=== PATIENT | female | born 1960 | race Caucasian/White ===

== ENCOUNTER → 2016-09-18 | Outpatient (CLI) | payer BC ==
[~2016-09-18] MED LIST: ALBU8.5H2 IH; ALPR0.2550 PO; CARV3.122 PO; CRESTOR40 MG PO; EXEN10PE4 SQ; FERR-57 PO; FLUO60CR TOP; LEVO500T78 PO; LIOT5TAB6 PO; LISI40TA PO; LVT.15T PO; MAGN400T6 PO; METF-380 PO; OMEP20CA12 PO; TRET15GE2 TP; VENL150C53 PO
== END ==
LOC: CARD 12:59
PROVIDERS: ATTEND Internal Medicine Cardiovascular Disease
DX: E11.9 Type 2 diabetes mellitus without complications (principal); R00.2 Palpitations; G47.33 Obstructive sleep apnea (adult) (pediatric); I10 Essential (primary) hypertension
CPT/HCPCS: 93306

== ENCOUNTER 2016-10-27 07:05 | Day surgery (SDC) | payer BC ==
[~2016-10-27] VITALS: Ht 180.3 cm; Wt 103.9 kg
[2016-10-27] VITALS (8 sets, daily range): BP systolic 110–146; BP diastolic 67–82
[~2016-10-27 07:05] MED LIST changes: +HEParin (CATH LAB) 2,000 ML IV ONE; +NS IV 1000 ML 1,000 ML ONE
[2016-10-27] MEDS ORDERED: NS IV 1000 ML 1,000 ML IV SCH ×2 (07:30→09:02)
[2016-10-27 07:34] LABS: MEAN PLATELET VOLUME 10.1 FL (7.4-10.4); RED BLOOD COUNT 5.14 10^6/uL (4.35-5.85); WHITE BLOOD COUNT 9.4 10^3/uL (4.3-11.0)
[2016-10-27] MEDS ORDERED: DAPA5TAB PO (07:46)
[2016-10-27] MEDS ORDERED: EXEN2VIA SQ (07:46)
[2016-10-27] MEDS ORDERED: LEVO112T55 PO (07:46)
[2016-10-27] MEDS ORDERED: OMEP20CA12 PO (07:46)
[2016-10-27] MEDS ORDERED: COLE625T9 PO ×2 (07:46)
[2016-10-27] MEDS ORDERED: METF1000 PO (07:46)
[2016-10-27] MEDS ORDERED: CARV25TA PO (07:46)
[2016-10-27] MEDS ORDERED: FENO134C PO (07:46)
[2016-10-27 07:47] LABS: INR 0.9 (0.8-1.4); PROTHROMBIN TIME PATIENT 12.1 SEC (12.2-14.7)
[2016-10-27] MEDS ORDERED: fentaNYL INJECTION 100 MCG/2 ML AMP ONE (08:01)
[2016-10-27] MEDS ORDERED: diphenhydrAMINE 50 MG/ML INJ (BENADRYL) ONE (08:01)
[2016-10-27] MEDS ORDERED: MIDAZOLAM 5 MG/5 ML (VERSED) VIAL ONE (08:01)
[2016-10-27 08:03] LABS: ALANINE AMINOTRANSFERASE 30 U/L (0-55); ALBUMIN 4.4 GM/DL (3.2-4.5); ANION GAP 9 MMOL/L (5-14); ASPARTATE AMINO TRANSFERASE 17 U/L (5-34); BILIRUBIN,TOTAL 0.2 MG/DL (0.1-1.0); BLOOD UREA NITROGEN 15 MG/DL (7-18); BUN/CREATININE RATIO 20; CALCIUM 10.2 MG/DL (8.5-10.1); CARBON DIOXIDE 23 MMOL/L (21-32); CHLORIDE 107 MMOL/L (98-107); CHOLESTEROL 194 MG/DL (< 200); CREATININE SERUM 0.76 MG/DL (0.60-1.30); DIRECT LDL 112 MG/DL (1-129); GFR ESTIMATED > 60; GLUCOSE 145 MG/DL (70-105); POTASSIUM 4.2 MMOL/L (3.6-5.0); SODIUM 139 MMOL/L (135-145); TOTAL PROTEIN 7.1 GM/DL (6.4-8.2); TRIGLYCERIDES 221 MG/DL (<150); VLDL CHOLESTEROL 44 MG/DL (5-40)
--- NOTE | 2016-10-27 09:02 | Cardiac Procedure Note-CS/ASA ---
Pre-Procedure Note Pre-Op Procedure Note H&P Reviewed The H&P was reviewed, patient examined and no changes noted. Date H&P Reviewed: Oct 27, 2016 Time H&P Reviewed: 08:35 Conscious Sedation Pre-Proced Time Reviewed: 08:35 ASA Class: 3 Airway Mallampati Classification: ([place] appropriate class) I. II. III, IV Lungs Heart ASA score ASA 1: a normal healthy patient ASA 2: a patient with a mild systemic disease (mid diabetes, controlled hypertension, obesity ASA 3: a patient with a severe systemic disease that limits activity (angina , COPD, prior Myocardial infarction) ASA 4: a patient with an incapacitating disease that is a constant threat to life (CHF, renal failure) ASA 5: a moribund patient not expected to survive 24 hrs. (ruptured aneurysm) ASA 6: a declared brain patient whose organs are being harvested. For emergent operations, add the letter E after the classification Grade 2 Sedation Plan: Analgesia, Amnesia, Plan communicated to team members, Discussed options with patient/fam, Discussed risks with patient/fam Note The patient is an appropriate candidate to undergo the planned procedure, sedation, and anesthesia. The patient immediately re-assessed prior to indication. ALBERT CANO MD FACP FAC CCDS Oct 27, 2016 09:02
[2016-10-27] MEDS ORDERED: ASPI-999 PO (09:05)
--- NOTE | 2016-10-27 09:06 | Discharge Inst-Post CATH ---
Discharge Inst-CATH Post Cardiac Cath D/C Inst Follow Up/Plan HOLD METFORMIN UNTIL THE EVENING OF 10/29/16 F/u with Dr Street in 2-3 weeks CARDIAC CATH DISCHARGE INSTRUCTIONS *Hold Metformin for 48 hours post heart cath. ACTIVITY * Go Home directly and rest. * Limit activity of the leg (or wrist if it was used) for 7 days including aerobics, swimming, jogging, bicycling, etc. * Restrict stair-climbing for 7 days if possible, if not, climb up with your non -cath leg, then bring together on the same step. * Avoid lifting, pushing, pulling or excessive movement of the affected extremity for 7 days. * Customary sexual activity may be resumed after 2 days-use caution not to use a position that strains or causes pain to the affected extremity. * No driving for 24 hours. * NO SMOKING. * Avoid straining for bowel movements for 7 days. * Gentle walking on level ground is allowed. * Returning to work will depend on the type of procedure and the results. Your doctor will discuss this with you. CALL YOUR DOCTOR FOR ANY OF THE FOLLOWING: *If bleeding from the puncture site occurs- Apply gentle pressure to site with clean cloth and call your doctor or EMS. * If a knot or lump forms under the skin, increases in size, or causes pain. * If bruising appears to be worsening or moving further down your leg instead of disappearing. * Temperature above 101 F. CARE OF YOUR GROIN INCISION; * Bruising or purple discoloration of the skin near the puncture site is common. * You may shower only, no bathtub bathing for 5 days. Be careful to avoid slipping as your leg may feel stiff. * If a closure device was used on your femoral artery, please see the attached guide regarding care of the device and your leg. * REMOVE the dressing from your groin the next day after your procedure in the shower. CARE OF YOUR WRIST INCISION; * Bruising or purple discoloration of the skin near the puncture site is common. * You may shower. * DO NOT submerge wrist. * Remove dressing in [address] MD [facility] CCDS Oct 27, 2016 09:06
--- NOTE | 2016-10-27 09:07 | Discharge Inst-Cardiology ---
Discharge Inst-Cardiac Discharge Medications New Medications: Aspirin (Aspirin) 81 Mg Tab.chew 81 MG PO DAILY, #90 TAB 3 Refills Continued Medications: Albuterol (Proair Hfa) 8.5 Gm Hfa.aer.ad 2 PUFF IH RTQ4HR PRN for SHORTNESS OF BREATH, #1 EA 0 Refills 1 PUFFS Carvedilol (Carvedilol) 25 Mg Tablet 25 MG PO DAILY, TAB Colesevelam HCl (Welchol) 625 Mg Tablet 1250 MG PO AM, TAB Colesevelam HCl (Welchol) 625 Mg Tablet 625 MG PO AFTERNOON, TAB Dapagliflozin Propanediol (Farxiga) 5 Mg Tablet 5 MG PO DAILY, TAB Exenatide Microspheres (Bydureon) 2 Mg Vial 2 MG SQ WEEKLY ON WEDNESDAY, VIAL Fenofibrate,Micronized (Fenofibrate) 134 Mg Capsule 134 MG PO DAILY, CAP Ferrous Sulfate (Ferrous Sulfate) 325 Mg Tablet 325 MG PO DAILY Fluocinolone Acet (Synalar Cream) 60 Gm Cr 0 TOP PRN APPLY SPARINGLY Levothyroxine Sodium (Levothyroxine Sodium) 112 Mcg Tablet 112 MCG PO DAILY, TAB Lisinopril (Prinivil) 40 Mg Tablet 40 MG PO DAILY Metformin HCl (Metformin HCl) 1,000 Mg Tablet 1000 MG PO BID, TAB Omeprazole (Omeprazole) 20 Mg Capsule.dr 20 MG PO DAILY, CAP Rosuvastatin Calcium (Crestor) 40 Mg Tablet 40 MG PO DAILY Venlafaxine Hcl (Venlafaxine Hcl Er) 150 Mg Cap.sr.24h 300 MG PO DAILY Patient Instructions Patient Instructions: HOLD METFORMIN UNTIL THE EVENING OF 10/29/16 ALBERT CANO MD [facility] CCDS Oct 27, 2016 09:07
[2016-10-27] MEDS ORDERED: PATIENT MAY USE OWN MEDS, ALL PO SCH (09:15)
--- NOTE | 2016-10-27 09:48 | CARDIAC CATHETERIZATION ---
DATE OF SERVICE: 10/27/2016 The patient is a 66-year-old lady who has had evidence of supraventricular tachycardia and wide complex tachycardia on an ambulatory ekg monitor tech. She has coronary artery disease risk factors. Cardiac catheterization was carried out today after having obtained an informed consent. PROCEDURE: She was brought to the cardiac catheterization laboratory in a fasting state. Right groin was prepared and draped in the usual sterile fashion. Lidocaine 1% local anesthesia. Modified Seldinger technique was used to advance a 5-Kosovan sheath into the right femoral artery. Angiography of the right femoral artery was carried out through a sheath. A 5-Kosovan JL4 catheter was used for left coronary angiography. A 5-Kosovan JR4 catheter was used for right coronary angiography. A 5-Kosovan pigtail catheter was used for left heart catheterization, left ventricular angiography. The pigtail catheter was pulled back to the aortic arch and aortic arch angiography was performed. The catheter was then removed. Mynx was used to achieve hemostasis following sheath removal. Overall, she tolerated the procedure well. HEMODYNAMICS: Left ventricular end-diastolic pressure following coronary angiography was 8 mmHg. There was no significant pressure gradient on pullback across the aortic valve. Ascending aortic pressure 116/52 with a mean of 82 mmHg. LEFT VENTRICULAR ANGIOGRAPHY: Left ventricular angiography was carried out in the right anterior oblique projection. Global left ventricular systolic function is normal. No regional wall motion abnormalities are seen. Left ventricular ejection fraction is approximately 65%. There does not appear to be significant mitral regurgitation. CORONARY ANGIOGRAPHY: Left main coronary artery, left anterior descending artery, left circumflex artery, and right coronary artery are all free of angiographically significant disease. Right coronary artery is dominant. AORTIC ARCH ANGIOGRAPHY: Did not indicate any thoracic aortic aneurysm or dissection. The neck arteries, to the extent visualized, do not exhibit significant disease. CONCLUSIONS: 1. No angiographically significant coronary artery disease. 2. Normal global left ventricular systolic function with ejection fraction 65%. 3. Normal left ventricular end-diastolic pressure. 4. No significant mitral regurgitation. DISCUSSION AND RECOMMENDATIONS: Based on results of the study, it appears to be appropriate to continue a conservative approach. Risk factor modification has been reviewed. Outpatient followup is advised. Job ID: [id number] DocumentID: [id number] Dictated Date: 10/27/2016 08:57:34 Solar Engineer Date: 10/27/2016 09:48:14 Dictated By: ALBERT CANO MD, MA, FACP, FACC,
== END 2016-10-27 11:55 | disposition home or self-care (01) ==
LOC: CATH 07:05 → SURG 09:14 → CATH 11:55
PROVIDERS: ATTEND Internal Medicine Cardiovascular Disease
DX: I47.1 Supraventricular tachycardia (principal); G47.33 Obstructive sleep apnea (adult) (pediatric); E11.9 Type 2 diabetes mellitus without complications; E78.5 Hyperlipidemia, unspecified; I10 Essential (primary) hypertension; E66.9 Obesity, unspecified; F41.8 Other specified anxiety disorders; Z82.49 Family history of ischemic heart disease and other diseases of the circulatory system; Z79.84 Long term (current) use of oral hypoglycemic drugs; Z79.899 Other long term (current) drug therapy; Z68.33 Body mass index [BMI] 33.0-33.9, adult
CPT/HCPCS: 36221; 36415; 80053; 80061; 85027; 85610; 85730; 87081; 93005; 93458

== ENCOUNTER → 2016-11-12 | Outpatient (CLI) | payer BC ==
[~2016-11-12] MED LIST changes: +ASPI-999 PO; +CARV25TA PO; +COLE625T9 PO; +DAPA5TAB PO; +EXEN2VIA SQ; +FENO134C PO; -HEParin (CATH LAB) 2,000 ML IV ONE; +LEVO112T55 PO; +METF1000 PO; -NS IV 1000 ML 1,000 ML ONE
--- NOTE | 2016-11-13 20:45 | Diagnostic Imaging Report ---
Bilateral screening mammogram 2D views with tomosynthesis. The current study was also evaluated with a Computer Aided Detection (CAD) system. INDICATION: Screening. No current complaints stated on the questionnaire. COMPARISON: 09/13/2015. FINDINGS: The breasts are composed of scattered fibroglandular densities. There is an intramammary lymph node seen in the upper-outer aspect of the left breast without change from prior exams. Allowing for technique and positional differences, no suspicious change is seen. IMPRESSION: No significant change. ACR BI-RADS Category 2: Benign findings. Result letter will be mailed to the patient. Note: At least 10% of breast cancer is not imaged by mammography. Dictated on workstation # [id number]
== END ==
LOC: RAD 08:58
PROVIDERS: ATTEND Nurse Practitioner Family
DX: Z12.31 Encounter for screening mammogram for malignant neoplasm of breast (principal)
CPT/HCPCS: 77067

== ENCOUNTER → 2018-07-27 | Outpatient (CLI) | payer BC ==
[~2018-07-27] MED LIST changes: +METF-399 PO; -METF1000 PO
--- NOTE | 2018-07-27 16:31 | Diagnostic Imaging Report ---
PROCEDURE: US Non-ob pelvis comp/trans. TECHNIQUE: Multiple real-time grayscale images were obtained of the pelvis in various projections endovaginally. Transabdominal imaging was also performed. INDICATION: Postmenopausal bleeding. FINDINGS: Uterus measures 6.1 x 3.7 x 3.8 cm. Endometrium is abnormally thickened and heterogeneous in appearance measuring up to 14 mm. No myometrial mass is identified. The ovaries are not visualized. There is a cystic lesion in the left adnexa measuring approximately 2.1 x 1.9 cm, indeterminate. No free fluid is seen. IMPRESSION: 1. Abnormally thickened and heterogeneous endometrium measuring up to 14 mm. While this could be secondary to hyperplasia, possibility of endometrial neoplasm cannot be entirely excluded. 2. Indeterminate left adnexal cyst. Follow-up to confirm stability or resolution is recommended. Dictated by: Dictated on workstation # [id number]
--- NOTE | 2018-07-27 19:11 | Diagnostic Imaging Report ---
INDICATION: Routine screening. Comparison is made with prior mammograms from 11/12/2016 and 09/13/2015. 2-D and 3-D bilateral screening mammography was performed. The current study was also evaluated with a Computer Aided Detection (CAD) system. 3-D tomosynthesis was also performed and reviewed. FINDINGS: Scattered fibroglandular densities are identified bilaterally. Intraparenchymal lymph nodes in the upper-outer portions of both breasts appear stable. No new mass or malignant-appearing microcalcifications are seen. Axillae are unremarkable. IMPRESSION: No mammographic features suspicious for malignancy are identified. ACR BI-RADS Category 2: Benign findings. Result letter will be mailed to the patient. Note: At least 10% of breast cancer is not imaged by mammography. Dictated by: Dictated on workstation # [id number]
== END ==
LOC: RAD 13:30
PROVIDERS: ATTEND Nurse Practitioner Family
DX: Z12.31 Encounter for screening mammogram for malignant neoplasm of breast (principal); N95.0 Postmenopausal bleeding; N83.8 Other noninflammatory disorders of ovary, fallopian tube and broad ligament; Z78.0 Asymptomatic menopausal state
CPT/HCPCS: 76830; 76856; 77067

== ENCOUNTER → 2019-02-02 | Outpatient (CLI) | payer BC ==
[~2019-02-02] MED LIST changes: +OMEP20CA13 PO
--- NOTE | 2019-02-02 16:02 | Diagnostic Imaging Report ---
PROCEDURE: US Thyroid. TECHNIQUE: Multiple real-time grayscale images were obtained of the thyroid in various projections. INDICATION: Throat fullness. FINDINGS: Right lobe of the thyroid measures 3.9 x 1.1 x 1.0 cm, and the left lobe measures 4.3 x 0.8 x 0.6 cm. Isthmus is 1 mm in thickness. Both lobes of the thyroid show fairly homogeneous echotexture. No discrete mass is detected. IMPRESSION: Unremarkable thyroid ultrasound. Dictated by: Dictated on workstation # [id number]
== END ==
LOC: RAD 15:08
PROVIDERS: ATTEND Nurse Practitioner Family
DX: J39.2 Other diseases of pharynx (principal)
CPT/HCPCS: 76536

== ENCOUNTER → 2020-07-11 | Outpatient (CLI) | payer BC ==
[~2020-07-11] MED LIST changes: -OMEP20CA13 PO; +OMEP20CA18 PO
--- NOTE | 2020-07-11 14:13 | Diagnostic Imaging Report ---
Indication: Routine screening. Comparison is made with prior mammogram 07/27/2018 and 11/12/2016. 2-D and 3-D bilateral screening mammography was performed with CAD. Scattered fibroglandular densities are identified bilaterally. Intraparietal lymph nodes in the outer aspects of both breasts appears stable. No spiculated mass or malignant appearing microcalcifications are seen. Axillae are unremarkable. IMPRESSION: BI-RADS Category 2 No mammographic features suspicious for malignancy are identified. ACR BI-RADS Category 2: Benign findings. Result letter will be mailed to the patient. Note: At least 10% of breast cancer is not imaged by mammography. Dictated by: Dictated on workstation # [id number]
== END ==
LOC: RAD 11:15
PROVIDERS: ATTEND Nurse Practitioner Family
DX: Z12.31 Encounter for screening mammogram for malignant neoplasm of breast (principal)
CPT/HCPCS: 77063; 77067